=== PATIENT | male | born 1985 | race Caucasian/White ===

== ENCOUNTER 2019-07-09 01:01 | Emergency (ER) | payer OTHER ==
[2019-07-09] MEDS ORDERED: METOCLOPRAMIDE 10 MG/2mL INJ ONE (01:51)
[2019-07-09] MEDS ORDERED: ONDANSETRON 4 MG/2 ML VIAL ONE (01:51)
[2019-07-09] MEDS ORDERED: DIPHENHYDRAMINE 50 MG/ML VIAL ONE (01:52)
[2019-07-09] MEDS ORDERED: NA CHLORIDE 0.9% 1,000 ML ONE (01:52)
[2019-07-09 01:54] LABS: Absolute Lymphocytes (CBC) 1.9 K/uL (0.7-4.9); Basophils % 0.5 % (0-1.3); Hematocrit 41.7 % (39.6-49.0); Lymphocytes % 42.4 % (15.3-44.8); RBC Red Blood Cell Count 4.73 M/uL (4.33-5.43)
[2019-07-09 02:00] LABS: Protime INR 1.08
[2019-07-09 02:15] LABS: ALT/SGPT 50 U/L (12-78); AST/SGOT 33 U/L (15-37); Albumin 2.8 g/dL (3.4-5.0); Alkaline Phosphatase 60 U/L (45-117); BUN Blood Urea Nitrogen 11 mg/dL (7-18); Bicarbonate 29 mmol/L (21-32); Bilirubin Direct < 0.1 mg/dL (0-0.2); Bilirubin Total 0.2 mg/dL (0.2-1.0); Glucose Level 99 mg/dL (74-106); Magnesium 1.9 mg/dL (1.8-2.4); NT PRO-BNP 38 pg/mL (<125); Potassium 3.7 mmol/L (3.5-5.1); Protein, Total 6.5 g/dL (6.4-8.2); Sodium Level 142 mmol/L (136-145); Troponin (Emerg Dept Use Only) < 0.02 ng/mL (0.0-0.045)
[2019-07-09 02:33] LABS: T3 Free 3.12 pg/mL (2.18-3.98); Thyroid Stimulating Hormone 1.36 uIU/mL (0.360-3.740)
[2019-07-09 03:20] LABS: Barbiturates NEGATIVE (NEGATIVE); Benzodiazepines NEGATIVE (NEGATIVE); Cocaine NEGATIVE (NEGATIVE); METHAMPHETAM NEGATIVE (NEGATIVE); Methadone NEGATIVE (NEGATIVE); Opiates NEGATIVE (NEGATIVE); Phencyclidine NEGATIVE (NEGATIVE); THC Cannibis NEGATIVE (NEGATIVE)
[2019-07-09] MEDS ORDERED: levoFLOXacin 500 MG TAB ONE (04:20)
--- NOTE | 2019-07-09 04:21 | EDPHYS ---
Physician Documentation [facility] Name: Az Lopez Age: 34 yrs Sex: Male : 1985 Arrival Date: 07/09/2019 Time: 01:06 Bed 18 Private MD: ED Physician Ruperto Platt HPI: 07/09 01:30 This 34 yrs old Male presents to ER via Ambulatory with complaints of HEARTBEAT FEELS cp DIFFERENT. 01:30 The patient presents with a history of heart skipping beats. cp 01:30 Context: The symptoms occur at rest. cp 01:30 Onset: The symptoms/episode began/occurred 3 day(s) ago. cp 01:30 Duration: The patient or guardian reports multiple episodes, that are intermittent. cp Associated signs and symptoms: Pertinent positives: vomiting, headache, Pertinent negatives: chest pain, fever, SOB. Severity of symptoms: in the emergency department the symptoms are unchanged despite home interventions. The patient has been recently seen at an urgent care, this week, diagnosed with pneumonia and prescribed Z-rivka. Historical: - Allergies: 01:25 No Known Allergies; lp1 - Home Meds: 01:25 None [Active]; lp1 - PMHx: 01:25 None; lp1 - PSHx: 01:25 Tonsillectomy; Adenoids; lp1 - Immunization history:: Adult Immunizations up to date. - Social history:: Smoking status: Patient/guardian denies using tobacco. - Ebola Screening: : No symptoms or risks identified at this time. ROS: 01:33 Constitutional: Negative for body aches, chills, fever, poor PO intake. cp 01:33 Eyes: Negative for injury, pain, redness, and discharge. cp 01:33 ENT: Negative for drainage from ear(s), ear pain, sore throat, difficulty swallowing, difficulty handling secretions. 01:33 Cardiovascular: Positive for palpitations, Negative for edema. 01:33 Respiratory: Negative for wheezing. 01:33 Abdomen/GI: Negative for abdominal pain, nausea, vomiting, and diarrhea, black/tarry stool. 01:33 Skin: Negative for cellulitis, rash. 01:33 Neuro: Positive for headache, Negative for altered mental status, loss of consciousness, syncope, weakness. 01:33 All other systems are negative. Exam: 01:30 ECG was reviewed by the Attending Physician. cp 01:40 Constitutional: The patient appears in no acute distress, alert, awake, cp non-diaphoretic, non-toxic, well developed, well nourished, obese. 01:40 Head/Face: Normocephalic, atraumatic. cp 01:40 Eyes: Periorbital structures: appear normal, Conjunctiva: normal, no exudate, no injection, Sclera: no appreciated abnormality, Lids and lashes: appear normal, bilaterally. 01:40 ENT: External ear(s): are unremarkable, Ear canal(s): are normal, clear, TM's: dullness, bilaterally, Nose: is normal, Mouth: Lips: moist, Oral mucosa: moist, Posterior pharynx: is normal, airway is patent, no erythema, no exudate. 01:40 Neck: ROM/movement: Meningeal signs: are not present, nuchal rigidity, is not appreciated. 01:40 Chest/axilla: Inspection: normal, Palpation: is normal, no crepitus, no tenderness. 01:40 Cardiovascular: Rate: tachycardic, Rhythm: regular, Heart sounds: murmur, not appreciated, Edema: is not appreciated, JVD: is not appreciated. 01:40 Respiratory: the patient does not display signs of respiratory distress, Respirations: normal, no use of accessory muscles, no retractions, no splinting, no tachypnea, labored breathing, is not present, Breath sounds: are clear throughout, no decreased breath sounds, no stridor, no wheezing. 01:40 Abdomen/GI: Inspection: abdomen appears normal, Bowel sounds: active, all quadrants, Palpation: abdomen is soft and non-tender, in all quadrants. 01:40 Back: pain, is absent, ROM is normal. 01:40 Skin: no rash present. 01:40 Neuro: Orientation: to person, place \T\ time. Mentation: is normal, Cerebellar function: is grossly normal, Motor: moves all fours, strength is normal. Vital Signs: 01:24 BP 129 / 81; Pulse 100; Resp 18; Temp 98.8(O); Pulse Ox 99% on R/A; Weight 129.27 kg; lp1 Height 5 ft. 8 in. (172.72 cm); Pain 0/10; 02:30 BP 116 / 85; Pulse 94; Resp 16; Pulse Ox 97% on R/A; lp1 03:30 BP 125 / 76; Pulse 72; Resp 15; Pulse Ox 100% on R/A; lp1 04:45 BP 108 / 74; Pulse 61; Resp 20; Pulse Ox 97% on R/A; lp1 01:24 Body Mass Index 43.33 (129.27 kg, 172.72 cm) lp1 MDM: 01:16 Patient medically screened. cp 02:00 Differential diagnosis: arrythmia, dehydration, pulmonary embolism, sepsis. cp 02:35 Data reviewed: vital signs, nurses notes, lab test result(s), EKG, radiologic studies, cp plain films. 02:35 Test interpretation: by ED physician or midlevel provider: plain radiologic studies, cp chest xray shows infiltrate right lung. Transition of care: After a detail discussion of the patient's case, care is transferred to Ruperto Platt MD. 07/09 01:29 Order name: Basic Metabolic Panel; Complete Time: 02:28 cp 07/09 01:29 Order name: CBC with Diff cp 07/09 01:29 Order name: LFT's; Complete Time: 02:28 cp 07/09 02:29 Interpretation: Normal except: ALB 2.8; GLOB 3.7; A/G 0.8. cp 07/09 01:29 Order name: Magnesium; Complete Time: 02:28 cp 07/09 01:29 Order name: NT PRO-BNP; Complete Time: 02:28 cp 07/09 01:29 Order name: PT-INR cp 07/09 01:29 Order name: Troponin (emerg Dept Use Only); Complete Time: 02:28 cp 07/09 02:29 Interpretation: Within normal limits: TROPED < 0.02. cp 07/09 01:29 Order name: D-Dimer cp 07/09 01:30 Order name: UDS; Complete Time: 04:19 cp 07/09 01:30 Order name: TSH; Complete Time: 03:12 cp 07/09 01:30 Order name: T3 Free; Complete Time: 03:12 cp 07/09 01:56 Order name: CBC with Automated Diff; Complete Time: 02:12 EDMS 07/09 02:29 Interpretation: Normal except: PIYUSH% 41.4. cp 07/09 02:07 Order name: Protime (+INR); Complete Time: 02:12 EDMS 07/09 02:07 Order name: D-Dimer; Complete Time: 02:12 EDMS 07/09 01:26 Order name: EKG - Nurse/Tech; Complete Time: 01:25 lp1 07/09 01:26 Order name: EKG; Complete Time: 01:27 lp1 07/09 01:29 Order name: XRAY Chest (1 view) cp 07/09 01:29 Order name: Cardiac monitoring; Complete Time: 01:33 cp 07/09 01:29 Order name: IV Saline Lock; Complete Time: 01:47 cp 07/09 01:29 Order name: Labs collected and sent; Complete Time: 01:47 cp 07/09 01:29 Order name: O2 Per Protocol; Complete Time: 01:33 cp 07/09 01:29 Order name: O2 Sat Monitoring; Complete Time: 01:33 cp 07/09 01:31 Order name: Urine Dipstick-Ancillary (obtain specimen); Complete Time: 03:04 cp 07/09 02:14 Order name: CT Chest For PE Angio cp EC:30 Rate is 92 beats/min. Rhythm is regular. AL interval is normal. QRS interval is normal. cp QT interval is normal. Interpreted by me. Reviewed by me. Administered Medications: 02:07 Drug: Zofran 4 mg Route: IVP; Site: right antecubital; tr5 03:03 Follow up: Response: Nausea is decreased tr5 02:08 Drug: Benadryl 25 mg Route: IVP; Site: right antecubital; tr5 03:03 Follow up: Response: No adverse reaction tr5 02:09 Drug: NS 0.9% 1000 ml Route: IV; Rate: 1 bolus; Site: right antecubital; tr5 02:09 Drug: Reglan 10 mg Route: IVP; Site: right antecubital; tr5 03:03 Follow up: Response: No adverse reaction tr5 04:33 Drug: LevaQUIN 500 mg Route: PO; lp1 04:51 Follow up: Response: No adverse reaction lp1 Disposition: 04:17 Co-signature as Attending Physician, Ruperto Platt MD. pkl Disposition: 07/09/19 04:19 Discharged to Home. Impression: Right lower lobe pneumonia. Palpitation. - Condition is Stable. - Medication Reconciliation Form, Thank You Letter, Antibiotic Education, Prescription Opioid Use, Work release form form. - Follow up: Private Physician; When: 2 - 3 days; Reason: Re-evaluation by your physician. - Problem is new. - Symptoms have improved. Signatures: Dispatcher [employer] EDRuperto Garsia MD MD pkl Zeinab Prado RN RN lp1 Guilherme Marroquin PA PA cp Rodriguez, Tommie RN RN tr5 Corrections: (The following items were deleted from the chart) 04:53 04:19 07/09/2019 04:19 Discharged to Home. Impression: Right lower lobe pneumonia. lp1 Palpitation. Condition is Stable. Forms are Medication Reconciliation Form, Thank You Letter, Antibiotic Education, Prescription Opioid Use. Follow up: Private Physician; When: 2 - 3 days; Reason: Re-evaluation by your physician. Problem is new. Symptoms have improved. pkl
--- NOTE | 2019-07-09 04:21 | ER ---
Nurse's Notes [facility] Name: Az Lopez Age: 34 yrs Sex: Male : 1985 Arrival Date: 07/09/2019 Time: 01:06 Bed 18 Private MD: Diagnosis: Right lower lobe pneumonia. Palpitation Presentation: 07/09 01:22 Presenting complaint: Patient states: Diagnosed with pneumonia on Saturday at Urgent lp1 Care, states "I feel like I can feel my heart skipping a beat sometimes"; Denies any chest pain, shortness of breath; Prescribed Z-pack and Tessalon Perles; Denies any fever today. Transition of care: patient was not received from another setting of care. Onset of symptoms was July 07, 2019. Risk Assessment: Do you want to hurt yourself or someone else? Patient reports no desire to harm self or others. Initial Sepsis Screen: Does the patient meet any 2 criteria? No. Patient's initial sepsis screen is negative. Does the patient have a suspected source of infection? No. Patient's initial sepsis screen is negative. Care prior to arrival: None. 01: Method Of Arrival: Ambulatory lp1 01: Acuity: SANDIP 3 lp1 Historical: - Allergies: 01:25 No Known Allergies; lp1 - Home Meds: 01:25 None [Active]; lp1 - PMHx: 01:25 None; lp1 - PSHx: 01:25 Tonsillectomy; Adenoids; lp1 - Immunization history:: Adult Immunizations up to date. - Social history:: Smoking status: Patient/guardian denies using tobacco. - Ebola Screening: : No symptoms or risks identified at this time. Screenin:25 Abuse screen: Denies threats or abuse. Denies injuries from another. Nutritional lp1 screening: No deficits noted. Tuberculosis screening: No symptoms or risk factors identified. Fall Risk None identified. Assessment: 01:29 General: Appears in no apparent distress. uncomfortable, Behavior is calm, cooperative, tr5 appropriate for age. Pain: Denies pain. Neuro: Level of Consciousness is awake, alert, obeys commands, Oriented to person, place, time. Cardiovascular: Reports palpitations, Denies shortness of breath, Heart tones present Bruits absent Capillary refill < 3 seconds Pulses are all present. Edema is absent. Respiratory: Airway is patent Respiratory effort is even, unlabored. GI: No signs and/or symptoms were reported involving the gastrointestinal system. : No signs and/or symptoms were reported regarding the genitourinary system. EENT: No signs and/or symptoms were reported regarding the EENT system. Derm: Skin is intact, Skin is dry, Skin is normal. Musculoskeletal: Capillary refill < 3 seconds, Range of motion: intact in all extremities. 02:30 Reassessment: Patient appears in no apparent distress at this time. Patient and/or tr5 family updated on plan of care and expected duration. Pain level reassessed. Patient is alert, oriented x 3, equal unlabored respirations, skin warm/dry/pink. 04:52 Reassessment: Patient appears in no apparent distress at this time. Patient states lp1 feeling better. Vital Signs: 01:24 BP 129 / 81; Pulse 100; Resp 18; Temp 98.8(O); Pulse Ox 99% on R/A; Weight 129.27 kg; lp1 Height 5 ft. 8 in. (172.72 cm); Pain 0/10; 02:30 BP 116 / 85; Pulse 94; Resp 16; Pulse Ox 97% on R/A; lp1 03:30 BP 125 / 76; Pulse 72; Resp 15; Pulse Ox 100% on R/A; lp1 04:45 BP 108 / 74; Pulse 61; Resp 20; Pulse Ox 97% on R/A; lp1 01:24 Body Mass Index 43.33 (129.27 kg, 172.72 cm) lp1 ED Course: 01:06 Patient arrived in ED. ag3 01:07 Guilherme Marroquin PA is PHCP. cp 01:07 Ruperto Platt MD is Attending Physician. cp 01:10 Roger Garcia, JOVITA is Primary Nurse. tr5 01:24 Triage completed. lp1 01:25 Arm band placed on left wrist. lp1 01:29 Bed in low position. Call light in reach. Side rails up X 1. Door closed. Noise tr5 minimized. 01:35 EKG done, by ED staff. tr5 01:45 Inserted saline lock: 20 gauge in right antecubital area, using aseptic technique. tr5 01:48 Initial lab(s) drawn, by me, sent to lab. tr5 02:00 X-ray completed. Patient tolerated procedure well. kw 02:10 Notified ED physician of a critical lab result(s). D-Dimer 1048. Notified Guilherme REICH.tr5 02:12 XRAY Chest (1 view) In Process Unspecified. EDMS 02:59 CT completed. Patient tolerated procedure well. Patient moved to CT via stretcher. Patient moved back from CT. 03:10 CT Chest For PE Angio In Process Unspecified. EDMS 04:51 No provider procedures requiring assistance completed. IV discontinued, No lp1 redness/swelling at site. Pressure dressing applied. Administered Medications: 02:07 Drug: Zofran 4 mg Route: IVP; Site: right antecubital; tr5 03:03 Follow up: Response: Nausea is decreased tr5 02:08 Drug: Benadryl 25 mg Route: IVP; Site: right antecubital; tr5 03:03 Follow up: Response: No adverse reaction tr5 02:09 Drug: NS 0.9% 1000 ml Route: IV; Rate: 1 bolus; Site: right antecubital; tr5 02:09 Drug: Reglan 10 mg Route: IVP; Site: right antecubital; tr5 03:03 Follow up: Response: No adverse reaction tr5 04:33 Drug: LevaQUIN 500 mg Route: PO; lp1 04:51 Follow up: Response: No adverse reaction lp1 Outcome: 04:19 Discharge ordered by . [email or web address] 04:52 Discharged to home ambulatory, with family. lp1 04:52 Condition: good 04:52 Discharge instructions given to patient, Instructed on discharge instructions, follow up and referral plans. medication usage, Demonstrated understanding of instructions, follow-up care, medications, Prescriptions given X 2, Tylenol #3 TID 15 tablets, Levaquin 500mg Daily 10 tablets 04:53 Patient left the ED. lp1 Signatures: Dispatcher [employer] EDMS Ruperto Platt MD MD pkl Marquis Hensley Kimberlee kw Pena, Laura, RN RN lp1 Guilherme Marroquin PA PA cp Gomez, Alice ag3 Rodriguez, Tommie RN RN tr5
--- NOTE | 2019-07-09 10:00 | RAD REPORT ---
EXAM DESCRIPTION: CT - Chest For Pe Angio - 07/09/2019 4:34 am CLINICAL HISTORY: PALPITATIONS COMPARISON: None. TECHNIQUE: CT CHEST ANGIOGRAPHY WITH IV CONTRAST on 07/09/2019 2:14 AM CDT. MIPS reconstructions were generated. This exam was performed according to our departmental dose-optimization program, which includes autom ated exposure control, adjustment of the mA and/or kV according to patient size and/or use of iterati ve reconstruction technique. MIP images were generated. FINDINGS: Thoracic aorta is normal in course and caliber without aneurysm or dissection. Pulmonary a rteries are adequately opacified without acute or chronic filling defects. The heart is normal in size. There is no pericardial effusion. Intrathoracic lymph nodes are not enla rged. There is a small right pleural effusion. Central airways are patent. There is minimal left basilar ai rspace disease. There is a large right lower lobe consolidation. There is minimal right upper and rig ht middle lobe airspace disease as well. There are no acute abnormalities within the limited images of the upper abdomen. There are no acute osseous findings. No suspicious bony lesions. IMPRESSION: No aortic dissection or aneurysm. No embolus. Extensive predominantly right lower lobe pneumonia. Electronically signed by: Yunior Mary MD 07/09/2019 3:57 AM CDT Due to temporary technical issues with the PACS/Fluency reporting system, reports are being signed by the in house radiologist as a courtesy to ensure prompt reporting. The interpreting radiologist is f ully responsible for the content of the report.
--- NOTE | 2019-07-09 10:19 | RAD REPORT ---
EXAM DESCRIPTION: RAD - Chest Single View - 07/09/2019 2:01 am CLINICAL HISTORY: Palpitations, pneumonia history COMPARISON: None. TECHNIQUE: AP portable chest image was obtained 0150 hours . FINDINGS: Airspace opacification is present in the lower right lung field. Lung volumes are low. Mot ion degradation is present. Heart and vasculature are normal. Right pleural effusion is suspected. Si gnificant failure or volume overload are doubtful. No acute bony abnormality seen. No acute aortic fi ndings suspected. IMPRESSION: Right base pneumonia and probable right pleural effusion.
--- NOTE | 2019-07-09 13:49 | EKG ---
Test Date: 2019-07-09 Test Time: 01:19:20 Supervisor Dehydrogenation: TR MEASUREMENT RESULTS: Intervals: Rate: 92 MS: 148 QRSD: 86 QT: 330 QTc: 408 [place]: P: 46 MS: 148 QRS: -4 T: 22 INTERPRETIVE STATEMENTS: Normal sinus rhythm with sinus arrhythmia Normal ECG No previous ECG available for comparison Electronically Signed On 07-09-19 13:47:17 CDT by Trey Grimm
== END 2019-07-09 04:53 | disposition home or self-care (01) ==
LOC: ER 01:01 → EDBD 01:01 → ER 04:53
DX: J18.1 Lobar pneumonia, unspecified organism (principal)
CPT/HCPCS: 93005; 85025; 80048; 36415; 83735; 85610; 85379; 80076; 80307 ×8; 84443; 84484; 84481; 83880; 71275; 71045; 96375; 96374; 99284; Q9967; J2765; J7030; J2405